=== PATIENT | female | born 1985 | race Caucasian/White ===

== ENCOUNTER 2024-01-27 16:23 | Emergency (ER) | payer SELFPAY ==
[2024-01-27 16:56] VITALS: TEMP 98.2
--- NOTE | 2024-01-27 17:05 | ERPHSYRPT ---
- History of Present Illness Time Seen by Provider: 01/27/24 16:56 Source: patient, family Exam Limitations: no limitations Patient Subjective Stated Complaint: C/O cough X 4 weeks; non-productive Triage Nursing Assessment: Patient ambulated back to ER wearing a mask. She is alert and oriented. She has a forceful, dry, non-productive cough. Patient's coughing increases when asked to take a deep breath. Physician History: Pt states cough nonproductive for 4 weeks now - has not had evaluation or Tx except OTC meds. Mild SObreath mainly with coughing and mild CP with cough only. Chest clear , Ht reg without M Abd soft nontender without peritoneal signs or masses. Ext without edema, Nontender calves without erythema. No hx CAD COPD, ASthma or PE or DVT. but has sinus allergies. Percs out for PE and has Heart score less than 3. DIscussed risk/benefits of testing Tx with family and pt including EKG, Trop BNP, D Dimer, CXR, CBC , CMP, Swab of RSV, Covid FLu and strep and they wish to proceed, these are ordered, results discussed. Timing/Duration: week(s) Cough Quality/Degree: moderate, dry cough Possible Cause: no prior episodes Modifying Factors: Improves With: coughing Associated Symptoms: cough, shortness of breath Allergies/Adverse Reactions: No Known Drug Allergies Allergy (Verified 01/27/24 16:47) Hx Tetanus, Diphtheria Vaccination/Date Given: Yes Immunizations Up to Date: Yes Travel Risk - International Travel Have you traveled outside of the country in past 3 weeks: No - Emerging Infectious Disease Are you exhibiting symptoms associated with any current EIDs: Yes Symptoms: Cough: New Onset, Headaches/Body Aches/, Shortness of Breath - Review of Systems Constitutional: No Fever, No Chills Eyes: No Symptoms Ears, Nose, & Throat: No Symptoms Respiratory: Cough, Dyspnea Cardiac: Chest Pain (only with cough), No Edema, No Syncope Abdominal/Gastrointestinal: No Abdominal Pain, No Nausea, No Vomiting, No Diarrhea Genitourinary Symptoms: No Dysuria Musculoskeletal: No Back Pain, No Neck Pain Skin: No Rash Neurological: No Dizziness, No Focal Weakness, No Sensory Changes Psychological: No Symptoms Endocrine: No Symptoms All Other Systems: Reviewed and Negative - Past Medical History Pertinent Past Medical History: Yes Musculoskeletal History: Fractures Other Medical History: right ankle fracture - Past Surgical History Past Surgical History: Yes Female Surgical History: Section Significant Family History: no pertinent family hx - Female History Hx Last Menstrual Period: 2 months ago Hx Now: No (Mirena Control) - Social History Smoking Status: Current every day smoker How long have you smoked: 20 y.o. Drug Use: none - Social Determinants of Health Will the patient participate in the screening: Declined to provide - Nursing Vital Signs Nursing Vital Signs: Initial Vital Signs Temperature 98.2 F 01/27/24 16:40 Pulse Rate 88 01/27/24 16:40 Respiratory Rate 28 H 01/27/24 16:40 Blood Pressure 136/105 01/27/24 16:40 O2 Sat by Pulse Oximetry 99 01/27/24 16:40 Pain Scale Pain Intensity 0 - Physical Exam General Appearance: no apparent distress, alert Eye Exam: PERRL/EOMI, eyes nml inspection Ears, Nose, Throat Exam: normal ENT inspection, TMs normal, pharynx normal, moist mucous membranes Neck Exam: normal inspection, non-tender, supple, full range of motion Respiratory Exam: normal breath sounds, lungs clear, No respiratory distress Cardiovascular Exam: regular rate/rhythm, normal heart sounds Gastrointestinal/Abdomen Exam: soft, No tenderness Pelvic Exam: deferred Rectal Exam: deferred Back Exam: normal inspection, No CVA tenderness, No vertebral tenderness Extremity Exam: normal inspection, normal range of motion Neurologic Exam: alert, oriented x 3, cooperative, normal mood/affect, sensation nml, No motor deficits Skin Exam: normal color, warm, dry, No rash Lymphatic Exam: No adenopathy SpO2 Interpretation: normal SpO2: 100 O2 Delivery: Room Air - Course Nursing assessment & vital signs reviewed: Yes EKG Interpreted by Me: Sinus Rhythm, NORMAL AXIS, NORMAL INTERVALS, NORMAL QRS, Non-specific ST Changes - Radiology Exams Chest X-ray Interpretation: Interpreted by me, Reviewed by me, No Pneumothorax, No Infiltrates, Other (calcified granulomas and interstitial changes) Ordered Tests: Active Orders 24 hr Category Date Time Status Health And Safety Representative STAT Care 01/27/24 17:08 Active EKG-ER Only STAT Care 01/27/24 17:07 Active Pulse Oximetry (ED) STAT Care 01/27/24 17:07 Active CHEST 2 VIEWS (PA AND LAT) Stat Exams 01/27/24 17:08 Taken CBC W DIFF Stat Lab 01/27/24 17:45 Completed CMP Stat Lab 01/27/24 17:45 Completed D-DIMER QUANTITATIVE Stat Lab 01/27/24 17:45 Completed Lactic Acid Stat Lab 01/27/24 17:45 Completed NT PRO BNPII Stat Lab 01/27/24 17:45 Completed TROPONIN Q4H Lab 01/27/24 17:45 Completed TROPONIN Q4H Lab 01/27/24 21:15 Ordered TROPONIN Q4H Lab 01/28/24 01:15 Ordered Respiratory Therapy Assessment DAILY RT 01/27/24 17:45 Completed Medication Summary Discontinued Medications Generic Name Dose Route Start Last Admin Trade Name Freq PRN Reason Stop Dose Admin Albuterol/Ipratropium 3 ml 01/27/24 17:07 01/27/24 17:45 Ipratropium/Albuterol Sulfate 3 Ml Ampul.Neb IH 01/27/24 17:08 3 ml STAT ONE Administration Albuterol/Ipratropium Confirm 01/27/24 17:40 Ipratropium/Albuterol Sulfate 3 Ml Ampul.Neb Administered 01/27/24 17:41 Dose 3 ml IH .STK-MED ONE Methylprednisolone Sodium 0 mg 01/27/24 17:10 01/27/24 17:48 Succinate 125 mg/ Sterile IV 01/27/24 17:11 125 mg Water 2 ml STAT ONE Administration Methylprednisolone Sodium Succinate Confirm 01/27/24 17:44 Methylprednis Sod Succ 125 Mg/2 Ml Vial Administered 01/27/24 17:45 Dose 125 mg .ROUTE .STK-MED ONE Sterile Water Confirm 01/27/24 17:44 Water For Injection,Sterile 10 Ml Vial Administered 01/27/24 17:45 Dose 10 ml IJ .STK-MED ONE Lab/Rad Data: Laboratory Result Diagrams 01/27/24 17:45 01/27/24 17:45 Laboratory Results 01/27/24 01/27/24 01/27/24 Range/Units 17:50 17:50 17:45 WBC (3.98-10.04) x10^3/uL RBC (3.93-5.22) x10^6/uL Hgb (11.2-15.7) g/dL Hct (34.1-44.9) % MCV (79.4-94.8) fL MCH (25.6-32.2) pg MCHC (32.2-35.5) g/dL RDW (11.7-14.4) % Plt Count (182-369) x10^3/uL MPV (9.4-12.3) fL Gran % (34.0-71.1) % Immature Gran % (Auto) (0.001-0.429) % Nucleat RBC Rel Count (0.00-0.2) % Eos # (Auto) (0.04-0.36) x10^3/uL Immature Gran # (Auto) (0.001-0.031) x10^3u/L Absolute Lymphs (auto) (1.18-3.74) x10^3/uL Absolute Monos (auto) (0.24-0.86) x10^3/uL Absolute Nucleated RBC (0.00-0.012) x10^3u/L Lymphocytes % (19.3-51.7) % Monocytes % (4.7-12.5) % Eosinophils % (0.7-5.8) % Basophils % (0.1-1.2) % Absolute Granulocytes (1.56-6.13) x10^3/uL Basophils # (0.01-0.08) x10^3/uL D-Dimer (0.0-0.50) mg/L Sodium (135-145) mmol/L Potassium (3.5-5.1) mmol/L Chloride (98-107) mmol/L Carbon Dioxide (22-30) mmol/L Anion Gap (5-15) MEQ/L BUN (7-17) mg/dL Creatinine (0.52-1.04) mg/dL Estimated GFR ML/MIN Glucose (74-106) mg/dL Lactic Acid (0.4-2.0) Calcium (8.4-10.2) mg/dL Total Bilirubin (0.2-1.3) mg/dL AST (14-36) U/L ALT (0-35) U/L Alkaline Phosphatase (38-126) U/L Troponin I < 0.012 (0.000-0.033) ng/mL NT-Pro-B Natriuret Pep (<300) pg/mL Serum Total Protein (6.3-8.2) g/dL Albumin (3.5-5.0) g/dL Influenza Type A Ag NEGATIVE (NEGATIVE) Influenza Type B Ag NEGATIVE (NEGATIVE) RSV (PCR) NEGATIVE (NEGATIVE) SARS-CoV-2 (PCR) NEGATIVE (NEGATIVE) Group A Strep Antibody NOT DETECTED (NEGATIVE) 01/27/24 01/27/24 01/27/24 Range/Units 17:45 17:45 17:45 WBC (3.98-10.04) x10^3/uL RBC (3.93-5.22) x10^6/uL Hgb (11.2-15.7) g/dL Hct (34.1-44.9) % MCV (79.4-94.8) fL MCH (25.6-32.2) pg MCHC (32.2-35.5) g/dL RDW (11.7-14.4) % Plt Count (182-369) x10^3/uL MPV (9.4-12.3) fL Gran % (34.0-71.1) % Immature Gran % (Auto) (0.001-0.429) % Nucleat RBC Rel Count (0.00-0.2) % Eos # (Auto) (0.04-0.36) x10^3/uL Immature Gran # (Auto) (0.001-0.031) x10^3u/L Absolute Lymphs (auto) (1.18-3.74) x10^3/uL Absolute Monos (auto) (0.24-0.86) x10^3/uL Absolute Nucleated RBC (0.00-0.012) x10^3u/L Lymphocytes % (19.3-51.7) % Monocytes % (4.7-12.5) % Eosinophils % (0.7-5.8) % Basophils % (0.1-1.2) % Absolute Granulocytes (1.56-6.13) x10^3/uL Basophils # (0.01-0.08) x10^3/uL D-Dimer 0.27 (0.0-0.50) mg/L Sodium 139 (135-145) mmol/L Potassium 4.4 (3.5-5.1) mmol/L Chloride 103 (98-107) mmol/L Carbon Dioxide 29 (22-30) mmol/L Anion Gap 11.1 (5-15) MEQ/L BUN 11 (7-17) mg/dL Creatinine 0.71 (0.52-1.04) mg/dL Estimated GFR 112.2 ML/MIN Glucose 93 (74-106) mg/dL Lactic Acid 1.9 (0.4-2.0) Calcium 10.1 (8.4-10.2) mg/dL Total Bilirubin 0.40 (0.2-1.3) mg/dL AST 25 (14-36) U/L ALT 34 (0-35) U/L Alkaline Phosphatase 84 (38-126) U/L Troponin I (0.000-0.033) ng/mL NT-Pro-B Natriuret Pep < 20.0 (<300) pg/mL Serum Total Protein 7.2 (6.3-8.2) g/dL Albumin 4.3 (3.5-5.0) g/dL Influenza Type A Ag (NEGATIVE) Influenza Type B Ag (NEGATIVE) RSV (PCR) (NEGATIVE) SARS-CoV-2 (PCR) (NEGATIVE) Group A Strep Antibody (NEGATIVE) 01/27/24 Range/Units 17:45 WBC 9.8 (3.98-10.04) x10^3/uL RBC 4.87 (3.93-5.22) x10^6/uL Hgb 13.9 (11.2-15.7) g/dL Hct 40.8 (34.1-44.9) % MCV 83.8 (79.4-94.8) fL MCH 28.5 (25.6-32.2) pg MCHC 34.1 (32.2-35.5) g/dL RDW 13.0 (11.7-14.4) % Plt Count 440 H (182-369) x10^3/uL MPV 8.6 L (9.4-12.3) fL Gran % 55.5 (34.0-71.1) % Immature Gran % (Auto) 0.4 (0.001-0.429) % Nucleat RBC Rel Count 0.0 (0.00-0.2) % Eos # (Auto) 0.33 (0.04-0.36) x10^3/uL Immature Gran # (Auto) 0.04 H (0.001-0.031) x10^3u/L Absolute Lymphs (auto) 3.14 (1.18-3.74) x10^3/uL Absolute Monos (auto) 0.83 (0.24-0.86) x10^3/uL Absolute Nucleated RBC 0.00 (0.00-0.012) x10^3u/L Lymphocytes % 31.9 (19.3-51.7) % Monocytes % 8.4 (4.7-12.5) % Eosinophils % 3.4 (0.7-5.8) % Basophils % 0.4 (0.1-1.2) % Absolute Granulocytes 5.46 (1.56-6.13) x10^3/uL Basophils # 0.04 (0.01-0.08) x10^3/uL D-Dimer (0.0-0.50) mg/L Sodium (135-145) mmol/L Potassium (3.5-5.1) mmol/L Chloride (98-107) mmol/L Carbon Dioxide (22-30) mmol/L Anion Gap (5-15) MEQ/L BUN (7-17) mg/dL Creatinine (0.52-1.04) mg/dL Estimated GFR ML/MIN Glucose (74-106) mg/dL Lactic Acid (0.4-2.0) Calcium (8.4-10.2) mg/dL Total Bilirubin (0.2-1.3) mg/dL AST (14-36) U/L ALT (0-35) U/L Alkaline Phosphatase (38-126) U/L Troponin I (0.000-0.033) ng/mL NT-Pro-B Natriuret Pep (<300) pg/mL Serum Total Protein (6.3-8.2) g/dL Albumin (3.5-5.0) g/dL Influenza Type A Ag (NEGATIVE) Influenza Type B Ag (NEGATIVE) RSV (PCR) (NEGATIVE) SARS-CoV-2 (PCR) (NEGATIVE) Group A Strep Antibody (NEGATIVE) - Progress Progress: improved, re-examined Air Movement: good Progress Note: 01/27/24 19:21 discussed risks/benefits with pt and that undetected pathlogy including cardiac even with nromal EKG and Trop could still be evolving and she wishes DC on AB and steroid adn f/u outpt resp rather than further eval in ER or hosp at this time, She has had no SObreath or further CP and has the capacity to make this c hoice. Blood Culture(s) Obtained: No Antibiotics given: No Counseled pt/family regarding: lab results, diagnosis, need for follow-up, rad results Medical Desision Making - Independent Historian Additional History obtained from: Family - Discussion of managment Reviewed:: Test results, Need for additional workup Agreed on:: Treatment plan, need for follow-up - Diagnostic Testing Diagnostic test were ordered, analyzed, and reviewed by me: Yes Radiological Interpretation: Interpreted by me, Reviewed by me - Risk of complications The pt has a mod risk of morbidity or mortality based on: Need for prescription drug management The pt has a high risk of morbidity or mortality based on: Decision regarding hospitilization or escalation of hosp level of care - Departure Departure Disposition: Home Clinical Impression: Chronic cough, persisting cough unknown cause Condition: Good Critical Care Time: No Referrals: DOCTOR,NO FAMILY [Primary Care Provider] - Follow up/PCP as directed Instructions: Cough, Adult (DC) Additional Instructions: followup with your Dr. MOY this week for your chronic cough and granulomas/nodules with other nonspecific lung findings on CXR and to consider referral to a lung specialist. THere could still be additional things developing so if you have furhter chest pain, or shortness of breath or any other symptoms of concern return meantime. . Prescriptions: Methylprednisolone Packet [Medrol Dosepack] 4 mg PO UD #30 packet Azithromycin 250 mg [Zithromax 250 MG TABLET] 250 mg PO ZPACK #6 tablet
[2024-01-27] MEDS ORDERED: DUONEB 0.5-3 MG/3 ml Neb IH ONE (17:40)
[2024-01-27] MEDS ORDERED: solu-MEDROL ONE (17:44)
[2024-01-27] MEDS ORDERED: Sterile H2O 10 ml IJ ONE (17:44)
[2024-01-27] MEDS: DUONEB 0.5-3 MG/3 ml Neb IH ONE (17:45)
[2024-01-27] MEDS: solu-MEDROL 125 MG, Sterile H2O 10 ml 2 ML IV ONE (17:48)
[2024-01-27 18:03] LABS: Absolute Neutrophil Ct (ANC) 5.46 x10^3/uL (1.56-6.13); BASOPHIL % 0.4 % (0.1-1.2); Basophil (Absolute #) 0.04 x10^3/uL (0.01-0.08); Eosinophil % 3.4 % (0.7-5.8); Eosinophil (Absolute #) 0.33 x10^3/uL (0.04-0.36); Hematocrit 40.8 % (34.1-44.9); Hemoglobin 13.9 g/dL (11.2-15.7); IMMATURE GRAN # 0.04 x10^3u/L (0.001-0.031); IMMATURE GRAN % 0.4 % (0.001-0.429); Lymphocyte (Absolute #) 3.14 x10^3/uL (1.18-3.74); Lymphocytes % 31.9 % (19.3-51.7); Mean Cell Volume 83.8 fL (79.4-94.8); Mean Corpuscular Hemoglobin 28.5 pg (25.6-32.2); Mean Corpuscular Hgb Concent. 34.1 g/dL (32.2-35.5); Mean Platelet Volume 8.6 fL (9.4-12.3); Monocyte (Absolute #) 0.83 x10^3/uL (0.24-0.86); Monocytes % 8.4 % (4.7-12.5); Neutrophil % 55.5 % (34.0-71.1); Platelet Count 440 x10^3/uL (182-369); Red Blood Count 4.87 x10^6/uL (3.93-5.22); White Blood Count 9.8 x10^3/uL (3.98-10.04)
[2024-01-27 18:08] VITALS: BP 134/79; PULSE 82; RESP 24
[2024-01-27 18:13] VITALS: O2SAT 100
[2024-01-27 18:27] LABS: ALBUMIN 4.3 g/dL (3.5-5.0); ALKALINE PHOSPHATASE 84 U/L (38-126); ANION GAP 11.1 MEQ/L (5-15); BLOOD UREA NITROGEN 11 mg/dL (7-17); CHLORIDE 103 mmol/L (98-107); Calcium 10.1 mg/dL (8.4-10.2); Carbon Dioxide 29 mmol/L (22-30); Creatinine 1 0.71 mg/dL (0.52-1.04); EST GLOMERULAR FILTRATION RATE 112.2 ML/MIN; Glucose 93 mg/dL (74-106); NT PRO BNPII < 20.0 pg/mL (<300); Potassium 4.4 mmol/L (3.5-5.1); SGOT/AST 25 U/L (14-36); SGPT/ALT 34 U/L (0-35); SODIUM 139 mmol/L (135-145); Total Protein 7.2 g/dL (6.3-8.2)
[2024-01-27 18:46] LABS: INFLUENZA A NEGATIVE (NEGATIVE); INFLUENZA B NEGATIVE (NEGATIVE); RESPIRATORY SYNCTIAL VIRUS NEGATIVE (NEGATIVE); SARS-CoV-2 Xpert Express NEGATIVE (NEGATIVE)
[2024-01-27] MEDS ORDERED: Zithromax 250 MG TABLET ONE (19:32)
[2024-01-27] MEDS: Zithromax 250 MG TABLET PO ONE (19:34)
--- NOTE | 2024-01-27 22:26 | XRAY ---
Indication: Short of breath. Cough. Comparison: None PA/lateral chest demonstrates normal heart, lungs, and bony thorax with incidental bilateral nipple jewelry.
== END 2024-01-27 19:41 | disposition home or self-care (01) ==
LOC: ED 16:23
DX: R05.3 Chronic cough (principal); R07.9 Chest pain, unspecified; Z79.52 Long term (current) use of systemic steroids; Z79.899 Other long term (current) drug therapy; Z72.0 Tobacco use
CPT/HCPCS: 0241U; 36000; 36415; 71046; 80053; 83605; 83880; 84484; 85025; 85379; 87651; 93005; 93041; 94640; 94760; 96374; 99285; 99284; J2919; A9270-GY